=== PATIENT | female | born 1995 | race Caucasian/White ===

== ENCOUNTER 2019-01-13 07:12 | Day surgery (SDC) | payer OTHER, SELFPAY ==
[2018-10-10 16:19] VITALS: BMI 33.1
[2019-01-13 07:29] LABS: Internal QC Validated? YES +Cl - CLEAR BKGD; Pregnancy, Urine Negative Negative
[2019-01-13 07:34] VITALS: BP 129/93; PULSE 99; RESP 18; TEMP 37.5; O2SAT 98; BMI 32.3
--- NOTE | 2019-01-13 08:15 | TONS_PTH ---
PATIENT: AMANDA DE JESUS [place] [facility] [place][id number] AGE/SX: 23/ ROOM: RE01/13/[address]: Dr. Eladio Edouard MD : 1995 BED: DIS: 01/13/2019 SPEC #: [id number] RECD: 01/13/19 10:03 STATUS: LIBRADO IVSI #: [id number] SADI: 01/13/19 08:[address]: Eladio Edouard DEPT: SURGICAL PATHOLOGY RECD BY: Shannan Hylton ENTERED: 01/13/19 14:40 SP TYPE: TONSILS OTHR DR: Dr. Eddie Boswell MD Tissues: A - Tonsil, NOS B - Tonsil, NOS Procedures: Surgery Specimen Level III HEADER OPERATION: Tonsillectomy PRE-OP DIAGNOSIS: Chronic tonsillitis TISSUE SUBMITTED: A - Right tonsil, B - Left tonsil MICROSCOPIC DIAGNOSIS A. Right tonsil: Reactive lymphoid hyperplasia, consistent with chronic tonsillitis. B. Left tonsil: Reactive lymphoid hyperplasia, consistent with chronic tonsillitis. ROD:gracy 01/16/19 MICROSCOPIC DESCRIPTION Slides are reviewed. GROSS DESCRIPTION A - Received in formalin labeled with the patient's name and designated right tonsil. The specimen consists of a tonsil that weighs 10.6 gm and measures 4 x 3 x 2 cm. The external surface is pink-poole, smooth, glistening and somewhat lobulated. Focally it is hemorrhagic, granular and bears cautery artifact. Serial cross sections through the tonsil reveal normal tonsillar architecture. Neighborhood Worker sections are submitted in one cassette. B - Received in formalin labeled with the patient's name and designated left tonsil. The specimen consists of a tonsil that weighs 8.8 gm and measures 4 x 2.5 x 2.5 cm. The external surface is pink-poole, smooth, glistening and somewhat lobulated. Focally it is hemorrhagic, granular and bears cautery artifact. Serial cross sections through the tonsil reveal normal tonsillar architecture. Neighborhood Worker sections are submitted in one cassette. / ROD:gracy 01/13/19 TC:3 CPT: 00427 x2
--- NOTE | 2019-01-13 09:07 | OP.PCM_ITS ---
Problem List (1) Chronic tonsillitis Status: Chronic Report of Operation Date of Procedure: 01/13/19 Pre-Operative Diagnosis: Chronic tonsillitis Post-Operative Diagnosis: Same Surgery/Procedure Performed:: Tonsillectomy Description of Surgical Findings:: Linda is a 23-year-old female since valuation recurrent strep tonsillitis with exam showing massive cryptic tonsillar hypertrophy consistent with chronic tonsillitis. The above procedure offered hopes of alleviation of these complaints and she is eager to proceed. The risks, alternatives, potential complications, and benefits were discussed at length and any questions answered to the patient and/or caregiver's satisfaction. Witnessed informed consent was obtained in the office, and the patient and/or caregiver was agreeable to proceed. Procedure went as follows: The patient was identified in the preoperative holding, brought to the operating room, was placed under general anesthesia and intubated. When appropriate anesthesia was obtained, the head of bed was rotated and the patient prepped and draped in usual sterile fashion. A Mely Diogenes mouthgag was then placed and the patient suspended from the [place] stand. T he oral cavity was examined and noted to have 4+ cryptic tonsillar hypertrophy. Beginning on the right side, the right tonsil was then grasped with a curved tenaculum and dissected from the underlying capsule with monopolar cautery. This was then sent as specimen. Similar procedure was then completed on the contralateral side. The oral and nasal cavities were then irrigated with saline solution. An NG tube was then placed to decompress the stomach. The patient was then returned to anesthesia, revived and extubated having tolerated the procedure well. Type of Anesthesia:: General Anesthesiologist: Jose Bennett Special Medications: none Specimen's removed: bilateral tonsils Drains: none Estimated Blood Loss (mL): 0 mL Fluids Replaced: 600 mL - Complications none - Admit VTE Documentation VTE Present on Admission: No VTE Mechan Device Prophylaxis: SCD's VTE Pharm Prophylaxis ordered?: No
--- NOTE | 2019-01-13 09:08 | DCINST_ITS ---
Discharge Diet: No Restrictions Discharge Activity: Return to Normal Activity Call your doctor if your incision/area has: Sudden Increased Bleeding Call your doctor if you observe: Fever of 101 or Higher, Uncontrolled pain Allergies/Adverse Reactions: Allergies ondansetron HCl [From Zofran (as hydrochloride)] Allergy (Verified 01/13/19 07:30) Hives, Redness Medications to take at Discharge Norgestrel-Ethinyl Estradiol [Cryselle-28 Tablet] 1 each PO DAILY 07/27/16 Cabergoline 0.5 mg PO MOTH 01/06/19 Primary Care Physician: Eddie Boswell MD [Primary Care Provider] - Test Results: Test results from this visit will be discussed in further detail at your follow- up appointment, if applicable. Please Follow Up With: Eladio Edouard MD When: 2 weeks
[2019-01-13 09:21] VITALS: BP 121/89; BP 129/93; PULSE 105; RESP 15; TEMP 36.4; O2SAT 97
[2019-01-13 09:30] VITALS: BP 124/89; BP 129/93; PULSE 100; RESP 16; O2SAT 96
[2019-01-13 09:45] VITALS: BP 124/91; BP 129/93; PULSE 95; RESP 16; O2SAT 98
[2019-01-13 09:56] VITALS: BP 122/87; BP 129/93; PULSE 89; RESP 16; TEMP 36.6; O2SAT 100
[2019-01-13] MEDS: Acetaminophen 160 MG/5 ML UDC 500 MG PO (11:21)
[2019-01-13 12:58] VITALS: BP 129/93; BP 133/84; PULSE 99; RESP 18; TEMP 37.1; O2SAT 100
== END 2019-01-13 13:15 | disposition home or self-care (01) ==
LOC: SDC 07:14 → AC 07:15
PROVIDERS: Family Provider Family Medicine; PCP Family Medicine; Referring Provider Otolaryngology; Visit Provider Otolaryngology
PROC: (CPT 42826; principal; 2019-01-13 08:00)
DX: J35.01 Chronic tonsillitis (principal); F41.9 Anxiety disorder, unspecified; F32.9 Major depressive disorder, single episode, unspecified; M06.9 Rheumatoid arthritis, unspecified
CPT/HCPCS: 42826; 81025; 88304; J7120

== ENCOUNTER 2019-09-09 22:35 | Emergency (ER) | payer OTHER, SELFPAY ==
[2019-09-09 22:36] VITALS: BP 143/93; PULSE 91; RESP 16; TEMP 36.7; O2SAT 100; BMI 33.3
--- NOTE | 2019-09-09 23:27 | ED.VIS.GEN ---
History of Present Illness Chief Complaint: Abd Pain Informant: Patient, Family Narrative: Patient presents the emergency department 4 to 5 days of abdominal pain. She states it hurts just above her umbilicus. No vomiting or diarrhea but does note that she developed some nausea last night after eating. No fevers. No belching or indigestion. No prior surgeries on her abdomen. Does not radiate to her back. There is no right upper quadrant pain. No lower abdominal pain. She denies risk of . Past Medical History - Allergies and Home Meds Allergies/Adverse Reactions: Allergies ondansetron HCl [From Zofran (as hydrochloride)] Allergy (Verified 01/13/19 07:30) Hives, Redness Primary Care Physician: Eddie Boswell MD [Primary Care Provider] - 1 Week Smoking Status: Never smoker Review of Systems General: Denies: Chills, Fever, Sweats Eyes: Denies: Visual changes - bilaterally, Diplopia ENT: Denies: Rhinorrhea, Sore throat Cardiovascular: Denies: Chest pain, Palpitations Respiratory: Denies: Dyspnea, Cough, Dyspnea on exertion Gastrointestinal: Reports: Abdominal pain, Nausea. Denies: Vomiting, Diarrhea, Melena, Hematochezia Genitourinary: Denies: Dysuria, Hematuria, Frequency Musculoskeletal: Denies: Back pain, Extremity Pain Skin: Denies: Rash, Wounds Neurological: Denies: Headache, Weakness, Numbness Physical Exam Vital Signs/Narrative: Vital Signs Temp Pulse Resp BP Pulse Ox 09/09/19 22:36 98.0 F 91 16 143/93 H 100 Inital Vital Signs reviewed: Yes General: Well nourished, Well developed, Obese, No Acute Distress Head: Normocephalic, Atraumatic Eyes: Perrl, EOMI ENT: Moist mucous membranes, No rhinorrhea Neck: Supple, Nontender Cardiovascular: Regular rate, Regular rhythm, No murmurs Respiratory: No distress, CTA bilaterally, Chest nontender, Diminished Abdomen: Soft, Nondistended, Normal bowel sounds, Tender. Negative for: Guarding, Rebound tenderness Back: Nontender, Normal Inspection Extremities: Nontender, No edema Skin: Normal color, No rash Neurological: Alert, Oriented x3, Cranial nerves II-XII grossly intact, Normal Strength, Normal Sensation Psychological: Normal affect, Normal Mood Diagnostic/Tx/Re-eval - Medical Decision Making Labs are normal. CT down pelvis is negative. I diagnosis of exclusion this could possibly be gastritis versus ulcer. I will put her on Protonix and Carafate and have her follow-up. We talked about the possibility of needing endoscopy or HIDA scan. Return if worsening or concerns ED Disposition - Plan for ED Patient: Disposition: Home or Assisted Living Diagnosis: Abdominal pain Instructions: ABDOMINAL PAIN, Unknown Cause, (Female), GASTRITIS vs. ULCER Prescriptions: Sucralfate [Carafate] 1 gm PO 4X/DAY #56 tab Prescription Printed Pantoprazole Sodium [Protonix] 20 mg PO BID #28 tab Prescription Printed Referrals: Eddie Boswell MD [Primary Care Provider] - 1 Week
[2019-09-09] MEDS: Mag Hydrox/Al Hydrox/Simeth 30 ML UDC PO (23:30)
[2019-09-10 00:11] LABS: Bacteria 0 SEEN /hpf (None Seen); Mucous, Urine 0 SEEN /hpf (<or=2+); White Blood Cells 0 SEEN /hpf (0-5)
[2019-09-10] MEDS: Famotidine 20 MG Tablet 40 MG PO (00:16)
[2019-09-10 00:22] LABS: Color, Urine Yellow (Yellow); Glucose, Dipstick Normal (Normal); Ketone-Dipstick Negative (Negative); Leukocyte Esterase-Dipstick Negative /ul (Negative); Nitrite-Dipstick Negative (Negative); Occult Blood-Urine 25 /ul (Negative); Protein-Dipstick Negative (Negative); Specific Gravity, Urine 1.015 (1.002-1.030); Urine Bilirubin Dipstick Negative (Negative); Urine Clarity Clear (Clear); Urine Urobilinogen Normal (Normal)
[2019-09-10 00:33] LABS: Internal QC Validated? YES +Cl - CLEAR BKGD; Pregnancy, Urine Negative Negative
[2019-09-10 00:35] LABS: Red Blood Cells-Urine 0-5 SEEN /hpf (0-5); Squamous Epithelial Cells - UA 5-10 SEEN /hpf (5-10)
[2019-09-10 00:36] VITALS: BP 138/89; PULSE 87; RESP 17; O2SAT 98
[2019-09-10 00:44] LABS: Absolute Lymphocyte Count 3.73 X10^3/uL (0.83-4.51); Absolute Neutrophil Count 4.5 X10^3/uL (2.0-7.7); Basophil# 0.06 X10^3/uL; Basophil% 0.6 % (0-1); Eosinophil# 0.08 X10^3/uL; Eosinophils% 0.9 % (0-5); Hematocrit 41.3 % (37-47); Hemoglobin 13.2 g/dL (12.0-15.0); Lymphocyte # 3.73 X10^3/ul (4.0); Lymphocyte % 40.3 % (19-41); Mean Corpuscular Hgb 28.7 pg (27.0-32.0); Mean Corpuscular Volume 89.8 fL (81-99); Mean Platelet Vol. 9.5 fl (6.2-12.0); Monocyte# 0.84 X10^3/uL; Monocyte% 9.1 % (0-10); NRBC Flagged by Analyzer 0 % (0-5); Neutrophil # 4.53 X10^3/uL (2.7-7.7); Platelet Count 343 K/mm3 (150-450); RBC Distribution Width CV 12.8 % (11.6-14.6); RBC Distribution Width SD 42.2 fl (35.1-43.9); White Blood Count 9.3 K/mm3 (4.4-11.0)
[2019-09-10 01:00] LABS: ALB/GLOB Ratio 0.8 RATIO (0.9-2.4); AST(SGOT) 12 U/L (15-37); Alanine Aminotransfer ALT/SGPT 17 U/L (13-56); Albumin, Serum 3.2 g/dL (3.2-5.0); Alkaline Phosphatase 95 U/L (45-117); Anion Gap 7 (5-15); BUN 11 mg/dL (7-18); BUN/Creat Ratio 11.3 RATIO (10-20); Calcium,Total 8.9 mg/dL (8.5-10.1); Chloride 110 mmol/L (98-107); Creatinine, Serum 0.98 mg/dL (0.55-1.02); EST Glomerular Filtration Rate 76 mL/min (>60); Est Glom Filt Rate - Afr Amer 92 mL/min (>60); Estimated Creatinine Clearance 81.71 ml/min; Globulin 4.2 g/dL (2.2-4.2); Glucose 89 mg/dL (74-106); Lipase 82 U/L (73-393); Potassium 3.7 mmol/L (3.5-5.1); Protein, Total 7.4 g/dL (6.4-8.2); Sodium Level 140 mmol/L (136-145); Total Bilirubin < 0.10 mg/dL (0.20-1.00)
[2019-09-10 02:00] VITALS: BP 135/86; PULSE 87; RESP 15; O2SAT 97
[2019-09-10 02:18] VITALS: RESP 15
--- NOTE | 2019-09-10 23:22 | CT_ITS ---
STUDY: CT ABDOMEN AND PELVIS WITH CONTRAST REASON FOR EXAM: Female, 23 years old. PAIN UNDER MID UMBILICUS WITH NAUSEA AND TENDERNESS X 4-5 DAYS, PAIN WITH DEEP INSPIRATION RADIATION DOSAGE (If Supplied By Facility): CTDIvol = ( 18.95 ) mGy, DLP = ( 895.75 ) mGycm TECHNIQUE: Transaxial images were obtained from the dome of the diaphragm to the symphysis pubis without oral contrast. Oral and amp; IV Gastrografin and amp; 100mL Isovue-370 was administered. Sagittal and coronal images were reconstructed. Individualized dose optimization techniques were used for this CT. COMPARISON: None. FINDINGS: The visualized lung bases are unremarkable. The visualized portions of the heart are within normal limits. Normal liver. Normal gallbladder and extrahepatic biliary system. Normal spleen. Normal pancreas. Normal bilateral adrenal glands. Normal right kidney. Normal left kidney. Normal visualized stomach. Normal small intestine. There are multiple colonic diverticula consistent with diverticulosis. The appendix is visualized and appears normal. Normal abdominal aorta. Normal inferior vena cava. Normal retroperitoneum. Normal urinary bladder. The uterus is anteverted and oriented to the left. Normal abdominal wall. Normal osseous structures. CT/Abdomen/Pelvis WITH Contrast IMPRESSION: No acute process within the abdomen or pelvis. No acute appendicitis or bowel obstruction. Mild diverticulosis with no signs of diverticulitis. Abdominal viscera within normal limits. Electronically Signed: Katja Puentes MD at 1:41 EST , Service support ,
== END 2019-09-10 02:19 | disposition home or self-care (01) ==
PROVIDERS: Emergency Provider Emergency Medicine; PCP Family Medicine
DX: R10.9 Unspecified abdominal pain (principal); R11.0 Nausea; E66.9 Obesity, unspecified
CPT/HCPCS: 36415; 74177; 80053; 81001; 81025; 83690; 85025; 99285; Q9967; A4216

== ENCOUNTER 2024-08-30 08:58 | Emergency (ER) | payer BC, SELFPAY ==
[2024-08-30 08:58] VITALS: BP 129/86; PULSE 97; RESP 18; TEMP 36.3; O2SAT 100; BMI 33.1
[2024-08-30] MEDS: Morphine 4 MG/ML Syringe IM (09:22)
--- NOTE | 2024-08-30 09:28 | EX.ED.UPPERE ---
HPI History of Present Illness HPI Narrative: Patient presents with a burn to her left hand that occurred today. Patient is right-hand dominant. Patient states she tripped and started to fall. Patient states she put her hand against a chimney pipe to catch her from falling. Patient states it is mainly over the palm of her left hand. Patient describes her pain as sharp and burning. Patient admits to some slight tingling in her fingers but denies any weakness or numbness. Patient went to urgent care prior to arrival and had a bacitracin dressing placed. Patient states her last tetanus was within 5 years. Chief Complaint: Burn Informant: patient Occured/Mechanism Mechanism/Context: Yes burn Burn: thermal Onset/Context/Timing Onset: Today Context: Sudden Onset Timing: Continuous Quality of Pain: Sharp and Burning Location: Left hand Worsened by: Palpation, movement Relieved by: Nothing Associated Symptoms Associated Symptoms: Negative for Parasthesia, Weakness or Loss of Funtion Narrative Tetanus Immunization: <5 years [facility] Medical History (Updated 08/30/24 @ 09:[address] Eladio Mojica DO) Hidradenitis suppurativa Rheumatoid arthritis PCOS (polycystic ovarian syndrome) Home Medications ?Medication ?Instructions ?Recorded ?Last Taken ?Type norgestrel 0.3 mg-ethinyl 1 ea PO DAILY 07/27/16 01/13/19 History estradiol 30 mcg tablet cabergoline 0.5 mg tablet 0.5 mg PO MOTH 01/06/19 01/13/19 History pantoprazole 20 mg tablet,delayed 20 mg PO BID #28 tabs 09/10/19 Unknown Rx release sucralfate 1 gram tablet 1 gm PO 4X/DAY #56 tabs 09/10/19 Unknown Rx hydrocodone-acetaminophen 5-325mg 1 tab PO Q6H PRN PRN Pain 3 days 08/30/24 Unknown Rx 5mg-325mg #10 TABLETS Allergy/AdvReac Type Severity Reaction Status Date / Time ondansetron HCl (From Zofran Allergy Hives, Verified 08/30/24 08:59 (as hydrochloride)) Redness Surgical History (Updated 08/30/24 @ 09:[address] Eladio Mojica, ) Hx of tonsillectomy History of knee surgery Social History Smoking Status: Never smoker alcohol intake: never ROS ROS ED Constitutional Constitutional ED: Denies chills or fever(s) Eyes Eyes: Denies blurry vision or change in vision ENT ENT ED: Denies rhinorrhea or sore throat Cardiovascular Cardiovascular: Denies chest pain or palpitations Respiratory/Chest Respiratory/Chest: Denies cough or dyspnea Gastrointestinal Gastrointestinal: Denies nausea or vomiting Genitourinary Genitourinary ED: Denies dysuria or hematuria Musculoskeletal Musculoskeletal: Denies back pain or neck pain Integumentary Denies abscess or rash Neurologic Neurologic: Denies headache(s) or weakness Allergic/Immunologic Allergic/Immunologic ED: Denies mouth swelling or urticaria EXAM Physical Exam Const Vital Signs: 08/30/24 08:58 08/30/24 09:14 Temperature 97.4 F L Temperature Source Oral Pulse Rate 97 Respiratory Rate 18 Respiratory Effort Normal Non-Labored Respiratory Depth Normal Respiratory Pattern Normal Blood Pressure 129/86 H Blood Pressure Mean 100 Pulse Ox 100 Oxygen Delivery Method Room Air Positive well nourished and well developed General Appearance ED: well developed and NAD HEENT Reports moist mucous membranes Neck full ROM and supple Extremity Extremity Narrative: There is tenderness and erythema over the palm of the left hand. There are some areas of blister formation. Sensation was intact to light touch in all areas of the burn. Range of motion was limited in all motions of the digits of the left hand secondary to pain. Sensation is intact to light touch in all digits. Capillary refill was less than 2 seconds in all digits. Radial pulses are good bilaterally. Neuro oriented x3, CN's II-XII intact bilaterally, moves all extremities, no focal motor deficits and no sensory deficits noted Sensorium / Orientation: alert Motor Exam: strength 5/5 throughout Psych mental status grossly normal MDM MDM MDM Narrative Medical decision making narrative: Patient was given injection of morphine here. Patient was given a prescription for [place]. Patient was instructed to continue to use bacitracin dressings. Patient was given referral for plastic surgery follow-up. Patient was instructed to return if worse in any way. Patient understood and was agreeable with plan. All questions were answered. Discharge Plan Triage Chief Complaint: Burn ED Provider: Eladio Mojica Dx/Rx/DC Orders Clinical Impression: Second degree burn of palm of left hand Instructions: ED Burn, Second-Degree Prescriptions: New hydrocodone-acetaminophen 5-325 mg tablet 1 tab PO Q6H PRN PRN (Reason: Pain) 3 Days Qty: 10 0RF No Action norgestrel-ethinyl estradiol 1 EACH tablet 1 ea PO DAILY Patient Comments: CONTROL cabergoline 0.5 MG tablet 0.5 mg PO MOTH sucralfate 1 GM tablet 1 gm PO 4X/DAY Qty: 56 0RF pantoprazole 20 MG tablet 20 mg PO BID Qty: 28 0RF Primary Care Provider: Felix Carl Referrals: Felix Carl MD [Primary Care Provider] - 5-7 Days Mauricio Cam MD [Med Staff - Active Staff] - 3-5 Days Print Language: Spanish Disposition Disposition: Home, Self Care
[2024-08-30 10:06] VITALS: BP 129/88; PULSE 104; RESP 16; TEMP 36.7; O2SAT 99
== END 2024-08-30 10:07 | disposition home or self-care (01) ==
PROVIDERS: Emergency Provider Emergency Medicine; PCP Family Medicine; Visit Provider Emergency Medicine
DX: T23.252A Burn of second degree of left palm, initial encounter (principal); M06.9 Rheumatoid arthritis, unspecified; W22.8XXA Striking against or struck by other objects, initial encounter; Z79.899 Other long term (current) drug therapy
CPT/HCPCS: 96372; 99282